=== PATIENT | female | born 1955 | race Caucasian/White ===

== ENCOUNTER 2019-05-29 08:07 | Emergency (ER) | payer OTHER ==
[~2019-05-29] VITALS: Ht 167.6 cm; Wt 97.5 kg
[~2019-05-29 08:07] MED LIST: ALBU90OI INH; ASCO500 PO; ATEN25 PO; ATEN50 PO; CALMAGZIN PO; CHOL10002 PO; CITA20; CITA20 PO; DIGO.125 PO; DIGO.25 PO; ENOX40I SUBQ; HYDACE5 PO; HYDCHL12.5; HYDCHL12.5 PO; IBUP800 PO; Keflex500 MG PO; LEVOCETIRIZINE D5 MG PO; LEVSOD25 PO; METF500 PO; Omeprazole20 M1; POTA10T PO; WARF5; ZOLP10 PO; [UNRECOGNIZED DRUG - REMARK]
[2019-05-29] MEDS ORDERED: FUROSEMIDE20 MG PO (08:27)
[2019-05-29] MEDS ORDERED: ATEN100 (08:27)
== END 2019-05-29 11:00 | disposition home or self-care (01) ==
LOC: ER 08:07
DX: M62.830 Muscle spasm of back (principal); G89.29 Other chronic pain; Z88.2 Allergy status to sulfonamides; Z88.8 Allergy status to other drugs, medicaments and biological substances; Z79.899 Other long term (current) drug therapy; Z79.84 Long term (current) use of oral hypoglycemic drugs; Z79.01 Long term (current) use of anticoagulants; I10 Essential (primary) hypertension; E11.9 Type 2 diabetes mellitus without complications; I48.91 Unspecified atrial fibrillation; Z87.891 Personal history of nicotine dependence
CPT/HCPCS: 72100; 96372; 99283-25; J1170

== ENCOUNTER 2020-10-28 08:20 | Day surgery (SDC) | payer MEDICARE, OTHER ==
[~2020-10-28] VITALS: Ht 167.6 cm; Wt 85.5 kg
[~2020-10-28 08:20] MED LIST changes: +ATEN100; +Aspir 8181 MG PO; -CITA20; +DHEA 50 MG TAB1 EACH PO; +FUROSEMIDE20 MG PO; +GLUCHON PO; +GLUCOPHAGE1000 M2 PO; +LOVA40 PO; -Omeprazole20 M1; +Omeprazole20 M1 PO; +WARF5 PO
--- NOTE | 2020-10-28 10:32 | NUR ---
10/28/20 1032 Carmen Gibbs 6ML NORMAL SALINE W/INDIGO CARMINE USED TO ELEVATE POLYPS
== END 2020-10-28 11:02 | disposition home or self-care (01) ==
LOC: ORSCSDS 08:20
PROVIDERS: Internal Medicine Gastroenterology
PROC: 0DBK8ZX Excision of Ascending Colon, Via Natural or Artificial Opening Endoscopic, Diagnostic (ICD-10-PCS; principal; 2020-10-28 09:30)
PROC: 0DBL8ZX Excision of Transverse Colon, Via Natural or Artificial Opening Endoscopic, Diagnostic (ICD-10-PCS; principal; 2020-10-28 09:30)
PROC: 0DBM8ZX Excision of Descending Colon, Via Natural or Artificial Opening Endoscopic, Diagnostic (ICD-10-PCS; principal; 2020-10-28 09:30)
DX: Z12.11 Encounter for screening for malignant neoplasm of colon (principal); D12.2 Benign neoplasm of ascending colon; D12.3 Benign neoplasm of transverse colon; K57.30 Diverticulosis of large intestine without perforation or abscess without bleeding; K64.8 Other hemorrhoids; Z86.010 Personal history of colon polyps; E11.9 Type 2 diabetes mellitus without complications; I48.91 Unspecified atrial fibrillation; E03.9 Hypothyroidism, unspecified; Z79.01 Long term (current) use of anticoagulants; Z79.84 Long term (current) use of oral hypoglycemic drugs; Z79.899 Other long term (current) drug therapy; Z87.891 Personal history of nicotine dependence
CPT/HCPCS: 82947; 88305; J2704; J7040; J7120

== ENCOUNTER → 2024-02-13 | Outpatient (CLI) | payer MEDICARE, OTHER ==
[2024-02-13 15:52] LABS: Source, Urine Clean Catch
[2024-02-13 19:01] LABS: Appearance, Urine Clear (Clear); Bilirubin, Urine Neg (Neg); Blood, Urine 3+ (Neg); Color, Urine Yellow (P-Yellow); Glucose Qualitative, Urine Neg (Neg); Ketones, Urine Neg (Neg); Leukocyte Esterase, Urine 2+ (Neg); Nitrite, Urine Neg (Neg); Protein, Urine 1+ (Neg); Specific Gravity, Urine 1.015 (1.003-1.022); Urobilinogen, Urine 1+ (Normal)
[2024-02-13 19:19] LABS: Squamous Epithelial Cells Few /hpf (Few)
[2024-02-13 19:20] LABS: Amorphous Light (0-Heavy); Bacteria Few /hpf; Calcium Oxalate Crystals Few /hpf
== END ==
LOC: LAB 08:45 → LAB SHORT 08:45
PROVIDERS: Family Medicine
DX: R30.0 Dysuria (principal)
CPT/HCPCS: 81001; 87077; 87086; 87186

== ENCOUNTER 2024-03-06 11:41 | Day surgery (SDC) | payer MEDICARE, OTHER ==
[~2024-03-06] VITALS: Ht 167.6 cm; Wt 72.3 kg
[~2024-03-06 11:41] MED LIST changes: -DIGO.125 PO; +DIGOX125 MC1 PO; +GABA100 PO; +Norco 5-325 Ta1 EACH PO; +Robaxin750 MG PO
[2024-03-06 12:15] VITALS: BP 139/83
[2024-03-06] MEDS ORDERED: NS 250 ML IV ONE (13:57)
[2024-03-06] MEDS ORDERED: Heparin Sodium 1000 Units/ML 10ML MDV ONE (13:57)
[2024-03-06] MEDS ORDERED: NS 1,000 ML IV ONE ×2 (13:57→14:28)
[2024-03-06] MEDS ORDERED: NS 100 ML IV ONE (13:58)
[2024-03-06] MEDS ORDERED: Midazolam HCl 1MG / ML 2ML Vial ONE ×2 (14:27→14:53)
[2024-03-06] MEDS ORDERED: FentaNYL Citrate 50 MCG/ML 2 ML Injection ONE ×2 (14:28→14:53)
--- NOTE | 2024-03-06 16:50 | NUR ---
PT BROUGHT TO PCU-20 BY BED FROM [employer]ION WORKER @ APPROX 1630 FOR EXTENDED RECOVERY. PT A&O X4. VSS. SPO2 > 92% ON RA. MONITOR SHOWING AFIB, HR 70s-80s. PT W/ R GROIN ACCESS SITE WNL W/ NO BLEEDING & NO HEMATOMA. PT DISCHARGE INSTRUCTIONS PACKET PROVIDED BY HC STAFF.
[2024-03-06] MEDS ORDERED: Acetaminophen 325 MG TABLET PO ONE (18:50)
[2024-03-06 19:00] VITALS: BP 145/77
[2024-03-06 19:34] VITALS: BP 138/90
[2024-03-06 20:46] VITALS: BP 137/79
--- NOTE | 2024-03-06 21:30 | NUR ---
DISCHARGE NOTE A/Ox4 AND COOPERATIVE WITH CARE. ANSWERS QUESTION APPROPRIATELY AND ABLE TO MAKE HER NEEDS KNOWN. RIGHT GROIN SITE FROM PROCEDURE THIS PM INTACT. SOME DRIED BLOOD NOTED AT SITE, BUT NO TENDERNESS, OOZING OR HEMATOMA NOTED. DENIES ANY TINGLING OR SENSATION LOSS IN RIGHT LEG. PT'S DAUGHTER ARRIVED TO ASSISTANT PROFESSOR OF ARCHAEOLOGY PT FOR DISCHARGE. VSS, SEE SHIFT ASSESSMENT AND DOCUMENTED VS FOR DETAILS. COMPLETED DISCHARGE PACKET GIVEN TO PT ALONG WITH ALL PERSONAL BELONINGS. EDUCATION PROVIDED ABOUT POST-PROCEDURE PRECAUTIONS. BOTH PT AND PT'S DAUGHTER VOICED UNDERSTANDING OF MATERIAL TAUGHT.
== END 2024-03-06 21:00 | disposition short-term general hospital (02) ==
LOC: MHTC 11:41 → PCU 16:29 → MHTC 21:00
DX: I72.8 Aneurysm of other specified arteries (principal); I48.91 Unspecified atrial fibrillation; I10 Essential (primary) hypertension; E11.9 Type 2 diabetes mellitus without complications; E03.9 Hypothyroidism, unspecified; Z87.891 Personal history of nicotine dependence; Z88.2 Allergy status to sulfonamides; Z88.1 Allergy status to other antibiotic agents; Z88.8 Allergy status to other drugs, medicaments and biological substances; Z79.82 Long term (current) use of aspirin; Z79.01 Long term (current) use of anticoagulants; Z79.890 Hormone replacement therapy; Z79.899 Other long term (current) drug therapy
CPT/HCPCS: 37242; 75625; 75726; 75774; 76937; 99152; 99153; A9270; C1760; C1769; C1887; C1894; J1644; J2250; J3010; J7030; J7050; Q9967

== ENCOUNTER 2024-03-10 19:38 | Inpatient (IN) | payer MEDICARE, OTHER ==
[~2024-03-10] VITALS: Ht 167.6 cm; Wt 75.0 kg
[2024-03-10 20:04] LABS: BASOPHILS ABSOLUTE AUTO 0.03 K/mm3 (0.00-0.23); BASOPHILS PERCENT AUTO 1 % (0-2); EOSINOPHILS PERCENT AUTO 2 % (0-6); Hematocrit 36.4 % (33.0-51.0); Hemoglobin 12.4 g/dL (11.5-16.0); IMMATURE GRAN ABSOLUTE AUTO 0.02 K/mm3 (0.00-0.10); IMMATURE GRAN PERCENT AUTO 0 % (0-1); LYMPHOCYTES ABSOLUTE AUTO 1.36 K/mm3 (0.84-5.20); LYMPHOCYTES PERCENT AUTO 24 % (21-46); MONOCYTES ABSOLUTE AUTO 0.42 K/mm3 (0.16-1.47); MONOCYTES PERCENT AUTO 7 % (4-13); Mean Corpuscular HGB 27.9 pg (26.0-34.0); Mean Corpuscular HGB Conc 34.1 g/dL (31.5-36.5); Mean Corpuscular Volume 82 fL (80-100); Mean Platelet Volume 9.6 fL (9.1-12.4); NEUTROPHILS ABSOLUTE AUTO 3.76 K/mm3 (1.96-9.15); NEUTROPHILS PERCENT AUTO 66 % (41-73); Platelet Count 137 K/mm3 (150-400); RDW Coefficient Variation 13.9 % (11.7-14.2); RDW Standard Deviation 40.6 fL (35.1-46.3); Red Blood Cell Count 4.44 M/mm3 (3.80-5.20); White Blood Cell Count 5.69 K/mm3 (4.00-11.30)
[2024-03-10 20:30] LABS: Albumin, Blood 3.6 g/dL (3.4-5.0); Bilirubin, Total 0.6 mg/dL (0.1-1.0); Bun/Creatinine Ratio 19.3 (12.0-20.0); Calcium, Blood 9.8 mg/dL (8.5-10.1); Creatinine, Blood 0.57 mg/dL (0.40-1.00); Globulin, Blood 3.7 g/dL (2.2-4.0); Potassium, Blood 3.8 mmol/L (3.5-5.5); Total Protein, Blood 7.3 g/dL (6.4-8.2)
[2024-03-10] MEDS ORDERED: FAMO20 PO (21:32)
[2024-03-10] MEDS ORDERED: AMOX500 PO (21:32)
[2024-03-10] MEDS ORDERED: Ketorolac Tromethamine 30mg Vial IV ONE (23:55)
[2024-03-11] MEDS ORDERED: Acetaminophen 325 MG TABLET PO PRN (04:00)
[2024-03-11] MEDS ORDERED: Magnesium Hydroxide Conc 10 ML UDC PO PRN (04:00)
[2024-03-11] MEDS ORDERED: Bisacodyl 10 MG Supp PR PRN (04:00)
[2024-03-11] MEDS ORDERED: Methocarbamol 500 MG Tab PO PRN (04:10)
[2024-03-11] MEDS ORDERED: HYDROcodone 5-APAP 325 TAB PO PRN (04:15)
[2024-03-11 04:49] LABS: International Normalized Ratio 1.4; Prothrombin Time Results 14.6 Sec (9.7-11.5)
[2024-03-11 05:57] LABS: BASOPHILS ABSOLUTE AUTO 0.04 K/mm3 (0.00-0.23); BASOPHILS PERCENT AUTO 1 % (0-2); EOSINOPHILS ABSOLUTE AUTO 0.14 K/mm3 (0.00-0.68); EOSINOPHILS PERCENT AUTO 3 % (0-6); Hematocrit 34.9 % (33.0-51.0); IMMATURE GRAN ABSOLUTE AUTO 0.02 K/mm3 (0.00-0.10); IMMATURE GRAN PERCENT AUTO 0 % (0-1); LYMPHOCYTES ABSOLUTE AUTO 1.54 K/mm3 (0.84-5.20); LYMPHOCYTES PERCENT AUTO 31 % (21-46); MONOCYTES ABSOLUTE AUTO 0.46 K/mm3 (0.16-1.47); MONOCYTES PERCENT AUTO 9 % (4-13); Mean Corpuscular HGB 27.8 pg (26.0-34.0); Mean Corpuscular HGB Conc 34.4 g/dL (31.5-36.5); Mean Corpuscular Volume 81 fL (80-100); Mean Platelet Volume 9.9 fL (9.1-12.4); NEUTROPHILS ABSOLUTE AUTO 2.73 K/mm3 (1.96-9.15); NEUTROPHILS PERCENT AUTO 56 % (41-73); Platelet Count 121 K/mm3 (150-400); RDW Coefficient Variation 13.9 % (11.7-14.2); RDW Standard Deviation 39.9 fL (35.1-46.3); Red Blood Cell Count 4.31 M/mm3 (3.80-5.20); White Blood Cell Count 4.93 K/mm3 (4.00-11.30)
[2024-03-11] MEDS ORDERED: Levothyroxine Sodium 0.025 MG Tab PO SCH (06:00)
[2024-03-11 06:22] LABS: Albumin, Blood 3.3 g/dL (3.4-5.0); Albumin/Globulin Ratio 1.1 (0.8-1.8); Bilirubin, Total 0.8 mg/dL (0.1-1.0); Bun/Creatinine Ratio 19.4 (12.0-20.0); Calcium, Blood 9.2 mg/dL (8.5-10.1); Creatinine, Blood 0.62 mg/dL (0.40-1.00); Magnesium, Blood 1.5 mg/dL (1.6-2.4); Phosphorus, Blood 3.9 mg/dL (2.5-4.9); Potassium, Blood 3.5 mmol/L (3.5-5.5); Total Protein, Blood 6.3 g/dL (6.4-8.2)
[2024-03-11] MEDS ORDERED: Insulin Human Lispro 100 Units/ML 3ML Syringe SC SCH (07:30)
[2024-03-11] MEDS ORDERED: Digoxin 0.125 MG Tab PO SCH (09:00)
[2024-03-11] MEDS ORDERED: Gabapentin 100 MG Cap PO SCH (09:00)
[2024-03-11] MEDS ORDERED: Aspirin 81 MG TabEC PO SCH (09:00)
[2024-03-11] MEDS ORDERED: Citalopram Hydrobromide 20 MG Tab PO SCH (09:00)
[2024-03-11] MEDS ORDERED: Furosemide 20 MG Tab PO SCH (09:00)
[2024-03-11] MEDS ORDERED: Sennosides 8.6 MG Tab PO SCH (09:00)
[2024-03-11] MEDS ORDERED: Docusate Sodium 100 MG Cap PO SCH (09:00)
[2024-03-11] MEDS ORDERED: Atenolol 50 MG Tab PO SCH (09:00)
[2024-03-11] MEDS ORDERED: LORazepam 2 MG/ML 1ML Injection IV PRN (11:40)
[2024-03-11] MEDS ORDERED: FentaNYL Citrate 50 MCG/ML 2 ML Injection IV PRN (11:40)
[2024-03-11 16:21] VITALS: BP 152/106
[2024-03-11] MEDS ORDERED: ALPR1 PO (16:38)
[2024-03-11] MEDS ORDERED: CALCIUM MAGNES1 EAC1 PO (16:39)
[2024-03-11] MEDS ORDERED: VITAMIN D5000 UNIT PO (16:40)
[2024-03-11] MEDS ORDERED: TOCO1000 PO (16:40)
[2024-03-11] MEDS ORDERED: Warfarin Sodium 5 MG Tab PO SCH (18:00)
[2024-03-11 19:29] VITALS: BP 150/86
--- NOTE | 2024-03-11 19:31 | NUR ---
ADMIT NOTE PATIENT ADMITTED TO FLOOR FROM ER ABOUT 1615. 1 ASSIST TO BED FROM [facility]. ORIENTED TO ROOM AND FALL RISKS. A/O X3-4, FORGETFUL AT TIMES. STROKE ASSESSMENT NURSING, NEGATIVE. C/O PAIN TO LEFT KNEE, UNABLE TO LIFT DUE TO PAIN. RIGHT GROIN BRUISED AND PINPOINT BLOOD SPOT PRESENT FROM PROCEDURE ON LAST TUESDAY. PRESENT AT THIS TIME. IV PATENT TO LEFT AC. ONE EPISODE OF BED EXITING SLIGHTLY PRIOR TO SHIFT CHANGE, NO INJURIES OCCURED, BED ALARM PLACED.
[2024-03-12 02:54] VITALS: BP 143/91
[2024-03-12 05:08] LABS: International Normalized Ratio 1.38; Prothrombin Time Results 14.4 Sec (9.7-11.5)
--- NOTE | 2024-03-12 05:44 | NUR ---
SHIFT SUMMARY PT. IS A&O X4, CLEAR SPEECH, ABLE TO MAKE HER NEEDS KNOWN. PT. VERBALIZES WOULD LIKE TO GO HOME TODAY, "BUT WHATEVER THE DRHernanSAYS", AND WOULD LIKE TO TALK TO THE DRHernan TODAY BY THE BEDSIDE, WHILE HER WOULD BE PRESENT.PT. C/O 02/12 LEFT KNEE (HX.RECENT SPRAIN), PAIN, REPORTS ORDERED NORCO 5/325MG IS NOT EFFECTIVE. MEDIATED PER EMAR. HS B. NO ACUTE EVENTS/DISTRESS NOTED OR REPORTED DURING THIS SHIFT. WILL HANDOFF TO THE INCOMING SHIFT NURSE. CALL LIGHT IN REACH.
[2024-03-12 07:55] VITALS: BP 144/95
[2024-03-12 16:00] VITALS: BP 158/99
[2024-03-12] MEDS ORDERED: Warfarin Sodium 7.5 MG Tab PO ONE (18:00)
== END 2024-03-12 17:29 | disposition home health service (06) | DRG 948 ==
LOC: ER 19:38 → MEDS 03-11 03:55 → ERHOLD 03-11 03:55 → MEDS 03-11 16:10
PROVIDERS: Emergency Medicine; Family Medicine; ADMIT Internal Medicine
DX: R53.1 Weakness (principal); I48.91 Unspecified atrial fibrillation; E04.1 Nontoxic single thyroid nodule; E11.9 Type 2 diabetes mellitus without complications; I10 Essential (primary) hypertension; I25.10 Atherosclerotic heart disease of native coronary artery without angina pectoris; Z88.2 Allergy status to sulfonamides; Z88.8 Allergy status to other drugs, medicaments and biological substances; Z79.899 Other long term (current) drug therapy; Z79.84 Long term (current) use of oral hypoglycemic drugs; Z79.891 Long term (current) use of opiate analgesic; Z98.890 Other specified postprocedural states; Z90.710 Acquired absence of both cervix and uterus; Z90.722 Acquired absence of ovaries, bilateral; Z90.79 Acquired absence of other genital organ(s); Z79.890 Hormone replacement therapy; Z79.01 Long term (current) use of anticoagulants; Z79.82 Long term (current) use of aspirin; Z87.891 Personal history of nicotine dependence; Z95.5 Presence of coronary angioplasty implant and graft; R10.30 Lower abdominal pain, unspecified
CPT/HCPCS: 36415; 70450; 70496; 70498; 70551; 71046; 74177; 80053; 82947; 83735; 84100; 84484; 85025; 85610; 93005; 93010; 93306; 96374; 97110; 97116; 97161; 99285-25; A9270; J1885; J2060; Q9967

== ENCOUNTER → 2024-04-25 | Outpatient (CLI) | payer MEDICARE, OTHER ==
[~2024-04-25] MED LIST changes: +ALPR1 PO; +AMOX500 PO; +CALCIUM MAGNES1 EAC1 PO; +FAMO20 PO; +TOCO1000 PO; +VITAMIN D5000 UNIT PO
[2024-04-25 09:22] LABS: Source, Urine Clean Catch
[2024-04-25 12:40] LABS: Bilirubin, Urine Neg (Neg); Blood, Urine 5+ (Neg); Glucose Qualitative, Urine Neg (Neg); Ketones, Urine Neg (Neg); Leukocyte Esterase, Urine 3+ (Neg); Nitrite, Urine Neg (Neg); Protein, Urine 2+ (Neg); Urobilinogen, Urine 2+ (Normal); pH, Urine 6.5 (5.0-8.0)
[2024-04-25 13:04] LABS: Appearance, Urine Hazy (Clear); Color, Urine Pale Yellow (P-Yellow)
[2024-04-25 13:06] LABS: Bacteria Many /hpf; Squamous Epithelial Cells Not Seen /hpf (Few); White Blood Cells, Urine TNTC /hpf (0-5)
== END | disposition home or self-care (01) ==
LOC: LAB SHORT 09:21 → LAB 09:21
PROVIDERS: Family Medicine
DX: R30.0 Dysuria (principal)
CPT/HCPCS: 81001; 87077; 87086; 87186

== ENCOUNTER → 2024-04-26 | Outpatient (CLI) | payer MEDICARE, OTHER ==
[2024-04-26 18:32] LABS: BASOPHILS ABSOLUTE AUTO 0.02 K/mm3 (0.00-0.23); BASOPHILS PERCENT AUTO 0 % (0-2); EOSINOPHILS ABSOLUTE AUTO 0.01 K/mm3 (0.00-0.68); EOSINOPHILS PERCENT AUTO 0 % (0-6); Hematocrit 40.5 % (33.0-51.0); Hemoglobin 13.8 g/dL (11.5-16.0); IMMATURE GRAN ABSOLUTE AUTO 0.03 K/mm3 (0.00-0.10); IMMATURE GRAN PERCENT AUTO 0 % (0-1); LYMPHOCYTES ABSOLUTE AUTO 0.75 K/mm3 (0.84-5.20); LYMPHOCYTES PERCENT AUTO 10 % (21-46); MONOCYTES ABSOLUTE AUTO 1.02 K/mm3 (0.16-1.47); MONOCYTES PERCENT AUTO 13 % (4-13); Mean Corpuscular HGB 27.9 pg (26.0-34.0); Mean Corpuscular HGB Conc 34.1 g/dL (31.5-36.5); Mean Corpuscular Volume 82 fL (80-100); NEUTROPHILS ABSOLUTE AUTO 5.98 K/mm3 (1.96-9.15); NEUTROPHILS PERCENT AUTO 77 % (41-73); RDW Coefficient Variation 13.7 % (11.7-14.2); RDW Standard Deviation 40.5 fL (35.1-46.3); Red Blood Cell Count 4.95 M/mm3 (3.80-5.20); White Blood Cell Count 7.81 K/mm3 (4.00-11.30)
[2024-04-26 18:38] LABS: Albumin, Blood 3.8 g/dL (3.4-5.0); Bilirubin, Total 1.8 mg/dL (0.1-1.0); Bun/Creatinine Ratio 12.9 (12.0-20.0); Calcium, Blood 9.5 mg/dL (8.5-10.1); Creatinine, Blood 0.85 mg/dL (0.40-1.00); Globulin, Blood 3.9 g/dL (2.2-4.0); Total Protein, Blood 7.7 g/dL (6.4-8.2)
[2024-04-26 18:46] LABS: Mean Platelet Volume 9.5 fL (9.1-12.4); Platelet Count 106 K/mm3 (150-400)
== END | disposition home or self-care (01) ==
LOC: LAB 18:23 → LAB SHORT 18:23
PROVIDERS: Emergency Medicine
DX: N39.0 Urinary tract infection, site not specified (principal)
CPT/HCPCS: 80053; 85025

== ENCOUNTER → 2024-06-01 | Outpatient (CLI) | payer MEDICARE, OTHER ==
[2024-06-01 11:47] LABS: Source, Urine Clean Catch
[2024-06-01 18:48] LABS: Bilirubin, Urine Neg (Neg); Blood, Urine 4+ (Neg); Glucose Qualitative, Urine Neg (Neg); Ketones, Urine Neg (Neg); Leukocyte Esterase, Urine 3+ (Neg); Nitrite, Urine Neg (Neg); Protein, Urine 1+ (Neg); Specific Gravity, Urine 1.005 (1.003-1.022); Urobilinogen, Urine 1+ (Normal)
[2024-06-01 18:59] LABS: Appearance, Urine Hazy (Clear); Color, Urine Pale Yellow (P-Yellow)
[2024-06-01 19:00] LABS: Bacteria Mod /hpf; Squamous Epithelial Cells Rare /hpf (Few); White Blood Cells, Urine 25-50 /hpf (0-5)
== END | disposition home or self-care (01) ==
LOC: LAB 11:38 → LAB SHORT 11:38
PROVIDERS: Family Medicine
DX: N39.0 Urinary tract infection, site not specified (principal)
CPT/HCPCS: 81001; 87077; 87086; 87186

== ENCOUNTER → 2024-11-12 | Outpatient (CLI) | payer MEDICARE, OTHER ==
[2024-11-12 18:11] LABS: BASOPHILS ABSOLUTE AUTO 0.04 K/mm3 (0.00-0.23); BASOPHILS PERCENT AUTO 1 % (0-2); EOSINOPHILS ABSOLUTE AUTO 0.09 K/mm3 (0.00-0.68); EOSINOPHILS PERCENT AUTO 2 % (0-6); Hematocrit 39.7 % (33.0-51.0); Hemoglobin 12.8 g/dL (11.5-16.0); IMMATURE GRAN ABSOLUTE AUTO 0.01 K/mm3 (0.00-0.10); IMMATURE GRAN PERCENT AUTO 0 % (0-1); LYMPHOCYTES ABSOLUTE AUTO 1.11 K/mm3 (0.84-5.20); LYMPHOCYTES PERCENT AUTO 23 % (21-46); MONOCYTES ABSOLUTE AUTO 0.44 K/mm3 (0.16-1.47); MONOCYTES PERCENT AUTO 9 % (4-13); Mean Corpuscular HGB 26.1 pg (26.0-34.0); Mean Corpuscular HGB Conc 32.2 g/dL (31.5-36.5); Mean Corpuscular Volume 81 fL (80-100); Mean Platelet Volume 9.2 fL (9.1-12.4); NEUTROPHILS ABSOLUTE AUTO 3.17 K/mm3 (1.96-9.15); NEUTROPHILS PERCENT AUTO 65 % (41-73); Platelet Count 103 K/mm3 (150-400); RDW Coefficient Variation 15.6 % (11.7-14.2); RDW Standard Deviation 45.5 fL (35.1-46.3); White Blood Cell Count 4.86 K/mm3 (4.00-11.30)
[2024-11-12 18:46] LABS: International Normalized Ratio 2.03; Prothrombin Time Results 20.6 Sec (9.7-11.5)
[2024-11-12 18:53] LABS: Albumin, Blood 4.4 g/dL (3.4-5.0); Albumin/Globulin Ratio 1.3 (0.8-1.8); Bilirubin, Total 1.8 mg/dL (0.1-1.0); Bun/Creatinine Ratio 17.7 (12.0-20.0); Calcium, Blood 10.1 mg/dL (8.5-10.1); Creatinine, Blood 0.73 mg/dL (0.40-1.00); Globulin, Blood 3.5 g/dL (2.2-4.0); Potassium, Blood 4.1 mmol/L (3.5-5.5); Total Protein, Blood 7.9 g/dL (6.4-8.2)
[2024-11-12 19:14] LABS: Digoxin (Lanoxin) 0.56 ug/mL (0.80-2.00)
== END | disposition home or self-care (01) ==
LOC: LAB 18:05 → LAB SHORT 18:05
PROVIDERS: Family Medicine
DX: I48.91 Unspecified atrial fibrillation (principal); R06.02 Shortness of breath; Z79.899 Other long term (current) drug therapy
CPT/HCPCS: 80053; 80162; 84484; 85025; 85610

== ENCOUNTER → 2025-05-27 | Outpatient (CLI) | payer MEDICARE, OTHER ==
[2025-05-27 17:29] LABS: BASOPHILS ABSOLUTE AUTO 0.05 K/mm3 (0.00-0.23); BASOPHILS PERCENT AUTO 1 % (0-2); EOSINOPHILS ABSOLUTE AUTO 0.12 K/mm3 (0.00-0.68); EOSINOPHILS PERCENT AUTO 2 % (0-6); Hematocrit 35.5 % (33.0-51.0); Hemoglobin 11.9 g/dL (11.5-16.0); IMMATURE GRAN ABSOLUTE AUTO 0.03 K/mm3 (0.00-0.10); IMMATURE GRAN PERCENT AUTO 1 % (0-1); LYMPHOCYTES ABSOLUTE AUTO 1.52 K/mm3 (0.84-5.20); LYMPHOCYTES PERCENT AUTO 27 % (21-46); MONOCYTES ABSOLUTE AUTO 0.42 K/mm3 (0.16-1.47); MONOCYTES PERCENT AUTO 7 % (4-13); Mean Corpuscular HGB Conc 33.5 g/dL (31.5-36.5); Mean Corpuscular Volume 81 fL (80-100); NEUTROPHILS ABSOLUTE AUTO 3.52 K/mm3 (1.96-9.15); NEUTROPHILS PERCENT AUTO 62 % (41-73); NRBC ABSOLUTE 0.00 K/mm3 (0.00-0.02); NRBC Auto 0.0 /100 WBC (0.0-0.2); Platelet Count 107 K/mm3 (150-400); RDW Coefficient Variation 15.4 % (11.7-14.2); RDW Standard Deviation 44.7 fL (35.1-46.3)
[2025-05-27 19:44] LABS: Prothrombin Time Results 29.1 Sec (9.7-11.5)
== END ==
LOC: LAB SHORT 17:23 → LAB 17:23
PROVIDERS: Student in an Organized Health Care Education/Training Program
DX: K92.1 Melena (principal)
CPT/HCPCS: 85025; 85610; 86592

== ENCOUNTER → 2025-05-30 | Outpatient (CLI) | payer MEDICARE, OTHER ==
[2025-05-31 14:15] LABS: Stool Occult Bld Immuno 1 Positive (NEGATIVE)
== END ==
LOC: LAB 21:00 → LAB SHORT 21:00
PROVIDERS: Student in an Organized Health Care Education/Training Program
DX: K92.1 Melena (principal)
CPT/HCPCS: 82274

== ENCOUNTER 2025-09-02 10:31 | Day surgery (SDC) | payer MEDICARE, OTHER ==
[~2025-09-02] VITALS: Ht 167.6 cm; Wt 80.4 kg
[2025-09-02] VITALS (40 sets, daily range): BP systolic 106–171; BP diastolic 54–116
[~2025-09-02 10:31] MED LIST changes: +ARTHRITIS PAIN150 GM TOP; +BETA.05TCA TOP; +FERSU300 PO; +METO100ER PO; +ZYRTEC10 M2 PO
--- NOTE | 2025-09-02 11:07 | NUR ---
PT TO DAY SURGERY AMBULATORY WITH STEADY GAIT. PT USED RESTROOM INDEPENDENTLY. History, Chart, Medications and Allergies reviewed before start of procedure. Pre-Op teaching done. Pt verbalizes understanding. Patient States Post-Procedure ride home has been arranged WITH SPOUSE. BELONGINGS REMOVED AND PLACED IN DAY SURGERY BAY INCLUDING GLASSES. WARM BLANKET PROVIDED, CALL LIGHT IN REACH.
--- NOTE | 2025-09-02 12:06 | NUR ---
09/02/25 1206 Komal Ca CONFIRMED AND REVIEWED H&P, MEDCICATIONS, ALLERGIES, MEDICAL HISTORY, RESPIRATORY HISTORY, VITAL SIGNS, 3-LEAD EKG, CONSENTS, AND PHYSICIAN ORDERS. PATIENT CONFIRMS NPO STATUS AND AGREES WITH SCHEDULED PROCEDURE. MONITOR INTACT WITH CONTINUOUS PULSE OXIMETRY, CAPNOGRAPHY, 3-LEAD EKG, INTERMITTENT BP. SUPPLEMENTAL O2 TO BE TITRATED THROUGHOUT PROCEDURE TO MAINTAIN O2 SATURATION ABOVE 90%. PATIENT DETERMINED TO BE ASA APPROPRIATE FOR PROPOFOL SEDATION PRIOR TO START OF PROCEDURE BY DR. CHÁVEZ
--- NOTE | 2025-09-02 13:44 | NUR ---
Patient up to Ambulate independently. Gait steady. Afib on monitor rate 70-90s. Pt has no complaints and verbalizes readiness to go home. Per Dr. Glynn, octaviaay to D/C home. Discharge instructions reviewed with patient and her spouse. Patient instructed to resume all her home medications including Warfarin, Aspirin and Metoprolol per Dr Glynn. Patient and her spouse verbalize understanding and agree. Copy given to patient to take home. Patient States Post-Procedure ride home has been arranged. Discharged via wheelchair to private car for ride home. Pt belongings returned to pt.
== END 2025-09-02 13:45 | disposition home or self-care (01) ==
LOC: ORSCMMR 10:31 → ORD 11:45 → ORSCMMR 13:45
PROVIDERS: Family Medicine
PROC: 0DBH8ZX Excision of Cecum, Via Natural or Artificial Opening Endoscopic, Diagnostic (ICD-10-PCS; principal; 2025-09-02 11:45)
PROC: 0DBL8ZX Excision of Transverse Colon, Via Natural or Artificial Opening Endoscopic, Diagnostic (ICD-10-PCS; principal; 2025-09-02 11:45)
PROC: 0DBN8ZX Excision of Sigmoid Colon, Via Natural or Artificial Opening Endoscopic, Diagnostic (ICD-10-PCS; principal; 2025-09-02 11:45)
DX: K92.1 Melena (principal); D12.0 Benign neoplasm of cecum; D12.3 Benign neoplasm of transverse colon; K62.1 Rectal polyp; K64.8 Other hemorrhoids; K64.4 Residual hemorrhoidal skin tags; K57.30 Diverticulosis of large intestine without perforation or abscess without bleeding; E03.9 Hypothyroidism, unspecified; I10 Essential (primary) hypertension; I48.91 Unspecified atrial fibrillation; Z79.01 Long term (current) use of anticoagulants; Z79.899 Other long term (current) drug therapy; K74.60 Unspecified cirrhosis of liver; E11.9 Type 2 diabetes mellitus without complications; Z85.42 Personal history of malignant neoplasm of other parts of uterus
CPT/HCPCS: 82947; 88305; J2704; J7120